=== PATIENT | female | born 1985 | race American Indian/Alaskan Native ===

== ENCOUNTER 2017-11-10 20:45 | Emergency (ER) | payer MEDICAID, OTHER ==
[2017-11-10 20:53] VITALS: BP 126/85
[2017-11-10 21:29] LABS: Basophils # (Auto) 0.1 K/mm3 (0.0-0.1); Basophils % (Auto) 0.7 % (0.0-1.8); Eosinophils # (Auto) 0.1 K/mm3 (0.0-0.4); Eosinophils % (Auto) 0.8 % (0.0-4.3); Hematocrit 39.2 % (30.3-42.9); Lymphocytes % (Auto) 37.1 % (13.4-35.0); Mean Corpuscular HGB Conc 33 % (30-34); Mean Corpuscular Hemoglobin 29 pg (28-32); Mean Corpuscular Volume 87 fl (79-97); Monocytes # (Auto) 0.5 K/mm3 (0.0-0.8); Monocytes % (Auto) 6.6 % (0.0-7.3); Platelet Count 193 K/mm3 (140-440); Red Blood Count 4.53 M/mm3 (3.65-5.03)
--- NOTE | 2017-11-11 02:27 | Emergency Department Report ---
HPI - General Chief Complaint: Vaginal Bleeding Time Seen by Provider: 11/11/17 00:39 - HPI HPI: The patient is a 32-year-old female with a significant history of irregular menstrual period, who presents for evaluation of vaginal bleeding. The patient reports consistent moderate in severity vaginal bleeding for the past 10 days, associated with cramping no abdominal pain on and off, resolved currently. The patient denies fever, chills, night sweats, diarrhea, blood in the stool, dark tarry stool, dysuria, hematuria, flank pain, genital discharge, inability to pass flatus. ED Past Medical Hx - Past Medical History Previous Medical History?: No Hx Seizures: No - Surgical History Past Surgical History?: Yes Additional Surgical History: c sec, breast augmentation - Social History Smoking Status: Current Some Day Smoker Substance Use Type: None - Medications Home Medications: Home Medications Medication Instructions Recorded Confirmed Last Taken Type Norgestimate-Ethinyl Estradiol 1 tab PO DAILY 12/28/12 12/28/12 12/31/12 17:00 History [Previfem] Ferrous Sulfate [Iron] 325 mg PO BID #60 tablet 11/11/17 Unknown Rx HYDROcodone/APAP 5-325 [[place] 1 each PO Q6HR PRN #15 tablet 11/11/17 Unknown Rx 5/325] medroxyPROGESTERone ACETATE 5 mg PO QDAY #7 tablet 11/11/17 Unknown Rx [Provera] ED Review of Systems ROS: Stated complaint: HEAVY BLEEDING Other details as noted in HPI Constitutional: denies: fever ENT: denies: throat or neck pain Respiratory: denies: cough, shortness of breath Cardiovascular: denies: chest pain Endocrine: denies unexplained weight loss or gain Gastrointestinal: denies: abdominal pain, nausea Genitourinary: reports vb denies: dysuria Musculoskeletal: denies: leg swelling Skin: denies: rash Neurological: denies: headache Hematological/Lymphatic: denies: easy bleeding or easy bruising Psych: denies sadness or hopelessness Physical Exam - Physical Exam Vital Signs: Vital Signs 11/10/17 20:51 Temperature 98.4 F Pulse Rate 86 Respiratory 16 Rate Blood Pressure 126/85 O2 Sat by Pulse 98 Oximetry Physical Exam: General: well-nourished, well-developed, no acute distress Head: Normocephalic, atraumatic Eyes: normal sclera ENT: Mucous membranes are pink and moist Neck: trachea midline, neck supple, No neck stiffness, no cervical adenopathy Respiratory: Breath sounds equal bilaterally, no wheezing, rales, or rhonchi Cardio: S1 and S2 present, no murmurs, rubs, gallops, capillary refill is brisk Abdomen: Normoactive bowel sounds, soft abdomen, no tenderness Musc: No pitting edema Skin: No rash Neuro: no facial drooping, normal speech Psych: Normal affect ED Course Vital Signs 11/10/17 20:51 Temperature 98.4 F Pulse Rate 86 Respiratory 16 Rate Blood Pressure 126/85 O2 Sat by Pulse 98 Oximetry ED Medical Decision Making - Lab Data Result diagrams: 11/10/17 21:03 - Medical Decision Making The patient was seen and examined by myself. The patient is placed on a ekg monitor and continuous pulse ox. On initial evaluation, the patient was found to be in no distress. Evaluation orders were placed. Lab results are reassuring including non-concerning levels of RBC, hemoglobin, hematocrit, negative test. The patient was reevaluated and reported that their symptoms were improved. As the patient has not concerning levels of RBC, hemoglobin, hematocrit, and platelets, with normal vital signs, and there is no evidence of severe bleeding requiring transfusion or other emergent management at this time, the patient is stable for discharge with outpatient follow-up. The patient is given follow-up and return instructions. The patient expressed understanding and agreed with the plan. The patient is discharged in stable condition. Critical care attestation.: If time is entered above; I have spent that time in minutes in the direct care of this critically ill patient, excluding procedure time. ED Disposition Clinical Impression: Vaginal bleeding, Menorrhagia with irregular cycle Disposition: - TO HOME OR SELFCARE Is pt being admited?: Yes Does the pt Need Aspirin: Yes Condition: Stable Instructions: Dysfunctional Uterine Bleeding (ED), Menorrhagia (ED) Prescriptions: Ferrous Sulfate [Iron] 325 mg PO BID #60 tablet HYDROcodone/APAP 5-325 [[place] 5/325] 1 each PO Q6HR PRN #15 tablet PRN Reason: Pain medroxyPROGESTERone ACETATE [Provera] 5 mg PO QDAY #7 tablet Referrals: ALEXANDRO CASTANEDA MD [Staff Physician] - 3-5 Days [facility] [Referring] - 3-5 Days QAMAR DAWN MD [Staff Physician] - 3-5 Days ALEXANDRO CHING MD [Staff Physician] - 3-5 Days Time of Disposition: 02:27
== END 2017-11-11 02:48 | disposition home or self-care (01) ==
LOC: ED 20:45
DX: N93.9 Abnormal uterine and vaginal bleeding, unspecified (principal); N92.0 Excessive and frequent menstruation with regular cycle; F17.200 Nicotine dependence, unspecified, uncomplicated
CPT/HCPCS: 36415; 84702; 85025; 86850; 86900; 86901; 99283